=== PATIENT | male | born 1945 | race Caucasian/White ===

== ENCOUNTER 2023-12-07 07:08 | Day surgery (SDC) | payer OTHER, SELFPAY ==
[2023-12-07] VITALS (9 sets, daily range): BP systolic 113–138; BP diastolic 57–72; BMI 27.9
--- NOTE | 2023-12-07 09:08 | ITS.CL.CATH ---
Chemical Checker - Catheterization
Cardiac Catheterization
Procedure Report:
CARDIAC CATHETERIZATION REPORT
Date of Procedure: 12/07/2023
Referring: Maximiliano Rodriguez MD
Indication: Angina with abnormal nuclear stress test
HEMODYNAMIC DATA
AO: 123/70
LV: 123/16
LEFT VENTRICULOGRAPHY: Normal segmental wall motion with EF 62%
CORONARY ANGIOGRAPHY
Dominance: Right
Left Main: Eccentric 40 and 50% distal stenosis
LAD: The LAD is severely calcified throughout its course. There is a 80% proximal LAD stenosis. There is a 70% mid LAD lesion distal to the takeoff of the second diagonal branch. There is a 60% distal LAD stenosis and a 90% LAD lesion just
proximal to the LV apex. D1 is a relatively small vessel with mild luminal disease. D2 is a medium sized vessel with mild luminal disease.
Circumflex: The circumflex is severely calcified with 50% proximal stenosis. OM1 and OM 2 are small. OM 3 is large with 70% proximal to mid stenosis in the much larger branch distal to a bifurcation site. The circumflex terminates with one small
and one medium sized posterolateral branch.
RCA: The RCA is dominant and severely calcified. There is 30% proximal stenosis and 50-60% mid RCA stenosis. There is 70% ostial RPDA stenosis (large vessel) and three medium sized posterolateral branches
Closure Device: None-the procedure was performed via the right radial artery. The William's test was normal prior to the procedure.
Radiation (mGy): 523
DAP (cm2.Gy): 47.3
Fluoro time: 3.2 min
CONCLUSIONS
1: Normal left ventricular wall motion with EF 62%
2: Severe multivessel CAD as described
3. We will add metoprolol XL 25 mg daily and provide sublingual nitroglycerin with instructions on use. The patient will have his activity restricted until revascularization has been accomplished. Elective consultation for CABG will be arranged.
The graftability of the LAD is the only issue with his candidacy for CABG. If either he was felt to be a poor surgical candidate or the patient refused surgery if offered, we could stent the proximal LAD lesion and the OM 3 lesion but would not be
able to provide complete revascularization. The left main lesion is borderline and is yet another reason why CABG is preferred in this patient if he is felt to be a candidate
Copy to: Maximiliano Rodriguez MD, Michael Farias MD
Gera Teran MD, [facility], [facility]
--- NOTE | 2023-12-07 10:38 | CONSULT.CT ---
Consultation
-
Date/Time Consultation Requested: 12/07/23
Date/Time Consultation Performed: 12/07/23 10:30
Requesting Provider: Dr. Gera Teran MD.
Performing Provider: Graciela Hodge PA-C
Reason for Consultation: Surgical evaluation for left main multivessel coronary artery disease
Patient History
Physicians
Family Physician: Dr. Michael Farias MD.
Outpatient Commercial Accountant: Dr. Maximiliano Rodriguez MD.
Inpatient Commercial Accountant: [facility] Cardiology-interventionalist Dr. Gera Teran MD.
History of Present Illness
Patient is an extremely pleasant 78-year-old male with past medical history significant for diffuse arthritis, hyperlipidemia, BPH, and history of palpitations/premature atrial contractions.
Patient has been experiencing chest pressure described as angina, and irregular rhythms consisting of palpitations, and premature atrial contractions. He is being followed by Dr. Maximiliano Rodriguez of cardiology. On 11/24/23 patient underwent
pharmacologic nuclear stress test which was abnormal. Given the results of the patient's abnormal stress test Dr. Rodriguez scheduled elective outpatient cardiac catheterization.
Patient presented to the cardiac catheterization lab today on 12/07/2023. Patient was found to have left main multivessel CAD. Please see Dr. Teran's report summarized below:
LM: 40-50% distal
LAD: 80% prox, 70% mid, 60-90% distal
LCx: 50% prox
OM3: 70% prox-mid
RCA: 30% prox, 50-60% mid
RPDA: 70% ostial
TTEchocardiogram: 11/22/23 [place]
EF: normal
MV: trace-mild
AV: minimal (pg 15), no AI
TV: trivial TR
PV: normal
LVSD: 29
LVDD: 43
PAP: 29
Past Medical History
Past Medical History: Other
Diffuse arthritis
Hyperlipidemia
BPH
History of palpitations/premature atrial contractions
History of multiple spinal surgeries
History of bilateral knee replacements
History of bilateral carpal tunnel release
Abnormal stress test
Past Surgical History
Past Surgical History: Other
C5-C6 laminectomy 08/2022
L4-L5, S1 fusion/laminectomy 2018
T10-T11 fusion/laminectomy
Bilateral knee replacements
Bilateral carpal tunnel release
Tonsillectomy
Dental History
Noncontributory
Family History
Mother: at Age (97) and Cause of (Natural causes)
Father: at Age (90) and Cause of (Complications with dementia and respiratory failure)
Social History
Alcohol: Occasional (3-5 drinks per week (beer/wine))
Drug: None
Tobacco: Former Smoker ( quit 1974, smoked 1 PPD x 5 years)
Personal: (has 4 children )
Living: Alone
Employment: Retired (Previously worked as an electrical repairer)
Allergies
Allergy/AdvReac Type Severity Reaction Status Date / Time
No Known Allergies Allergy Unverified 12/07/23 07:50
Home Medications
�Medication �Instructions �Recorded �Confirmed �Type
alpha lipoic acid 600 mg tablet 600 mg PO QPM 12/07/23 12/07/23 History
aspirin 81 mg capsule 81 mg PO DAILY 12/07/23 12/07/23 History
atorvastatin 40 mg tablet 40 mg PO DAILY #90 tabs 12/07/23 Rx
diclofenac sodium 1 % topical gel 2 g topical QID 12/07/23 12/07/23 History
duloxetine 30 mg capsule,delayed 30 mg PO DAILY 12/07/23 12/07/23 History
release
ibuprofen 200 mg tablet 400 mg PO Q6HPRN PRN pain 12/07/23 12/07/23 History
latanoprost 0.005 % eye drops 1 drp BOTH EYES HS 12/07/23 12/07/23 History
(Xalatan)
lidocaine HCl 4 % topical cream 1 applic topical BID PRN pain 12/07/23 12/07/23 History
(Aspercreme (lidocaine HCl))
magnesium glycinate 100 mg (as 200 mg PO DAILY 12/07/23 12/07/23 History
glycinate) tablet
metoprolol succinate 25 mg 25 mg PO DAILY #90 tabs 12/07/23 Rx
tablet,extended release 24 hr
multivitamin 1 tab PO DAILY 12/07/23 12/07/23 History
nitroglycerin 0.4 mg sublingual 0.4 mg sublingual [id number] PRN 12/07/23 Rx
tablet chest pain #25 tabs
tamsulosin 0.4 mg capsule 0.4 mg PO DAILY 12/07/23 12/07/23 History
turmeric 400 mg capsule 2,250 mg PO DAILY 12/07/23 12/07/23 History
vitamin B complex 1 cap PO DAILY 12/07/23 12/07/23 History
Review of Systems
-
History Source: Patient
General: Denies Fever, Weight Gain, Weight Loss or Fatigue
HEENT: Denies Visual Changes, Dysphagia or Hoarseness
Respiratory: Denies SOB, THRASHER, Cough or PND
Cardiac: Reports Palpitations and Other (Chest pressure, irregular heartbeat); Denies Known Vascular Disease, Nausea, Vomiting or Edema
Abdomen/GI: Denies Abdominal Pain, Reflux, Indigestion, Nausea, Vomiting, BRBPR or Ulcers
: Denies Dysuria, Frequency, Incontinence, Urgency or Hematuria
Musculoskeletal: Reports Myalgias, Arthralgias and Joint Pain; Denies Edema
Skin: Denies Itching or Rash
Neurological: Denies CVA, TIA, Headaches, Syncope, Numbness or Seizures
Vascular: Reports No Symptoms
Physical Exam
Vital Signs
Temp 99 F 12/07/23 07:23
Temp route: Temporal 12/07/23 07:23
Pulse 60 12/07/23 10:00
Resp Rate 20 12/07/23 10:00
Blood pressure 135/66 12/07/23 09:51
Blood pressure extremity used: Right upper arm 12/07/23 07:23
Position: Lying 12/07/23 07:23
MAP (cuff-Krysten Monitor) 87 12/07/23 09:51
SaO2 93 12/07/23 10:00
Oxygen Mode of Delivery Room air 12/07/23 07:23
Can the patient verbally communicate their pain? Yes 12/07/23 09:54
Actual Weight 178 lb 0.02 oz 12/07/23 07:23
Body Mass Index (BMI) 27.9 12/07/23 07:23
Diagnostic Studies
Cardiac catheterization: 12/07/23 [facility]
LM: 40-50% distal
LAD: 80% prox, 70% mid, 60-90% distal
LCx: 50% prox
OM3: 70% prox-mid
RCA: 30% prox, 50-60% mid
RPDA: 70% ostial
TTEchocardiogram: 11/22/23 [place]
EF: normal
MV: trace-mild
AV: minimal (pg 15), no AI
TV: trivial TR
PV: normal
LVSD: 29
LVDD: 43
PAP: 29
Exam
General: Well Developed, Well Nourished and No Apparent Distress
HEENT: Normocephalic, Moist Mucous Membranes, Atraumatic, PERRLA and EOMI
Neck: Trachea Midline; Negative Carotid Bruit
Respiratory: Clear; Negative Wheezes, Crackles, Rhonchi or Accessory Muscle Use
Cardiac: S1/S2 and Regular Rhythm (/Sinus Bradycardia ); Negative Murmur, Rub or Gallop
GI: Soft, Non Tender, Non Distended and Normal Bowel Sounds
Rectal: Deferred by Provider
Skin: Warm and Dry; Negative Rash
Neuro: AO x 3, No Motor Deficits and CN X-XII Intact
Extremities: Lower Level Edema (Trace bilaterally); Negative Upper Level Edema, Upper Level Cyanosis, Lower Level Cyanosis, Upper Level Clubbing or Lower Level Clubbing
Psych: Calm
Assessment / Plan
-
Assessment:
78-year-old male with PMH of:
Diffuse arthritis
Hyperlipidemia
BPH
History of palpitations/premature atrial contractions
History of multiple spinal surgeries
History of bilateral knee replacements
History of bilateral carpal tunnel release
Abnormal stress test
Now found to have newly diagnosed:
Left main multivessel CAD
Preserved left ventricular ejection fraction
Plan:
Patient's case will be discussed with attending physician.
Patient was given an outpatient consultation with surgeon Dr. Sesar Dodge MD.
Further preadmission testing and details regarding patient's surgical intervention and timing will be decided on that visit.
Appointment card was handed to the patient in person for follow-up on 12/13/2023 at 11:00 AM
[2023-12-07] MEDS: TOPROL XL 25 MG PO (10:57)
--- NOTE | 2023-12-07 13:02 | PTCARENOTE ---
Patient's IV removal tolerated well, no s.s of infection. Patient and RN discussed discharge instructions and pending appointments. patient stated understanding and all questions answered. Radial site C/D/I, no bleeding noted. Patient's son
acquired patient.
== END 2023-12-07 13:03 | disposition home or self-care (01) ==
LOC: CATH 07:08
PROVIDERS: ATTENDING PHYSICIAN Internal Medicine Cardiovascular Disease; CONSULT PHYSICIAN Thoracic Surgery (Cardiothoracic Vascular Surgery); FAMILY PHYSICIAN Orthopaedic Surgery Orthopaedic Surgery of the Spine
DX: I25.119 Atherosclerotic heart disease of native coronary artery with unspecified angina pectoris (principal); I25.84 Coronary atherosclerosis due to calcified coronary lesion; R00.2 Palpitations; I49.1 Atrial premature depolarization; N40.0 Benign prostatic hyperplasia without lower urinary tract symptoms; E78.5 Hyperlipidemia, unspecified; M19.90 Unspecified osteoarthritis, unspecified site; Z96.653 Presence of artificial knee joint, bilateral; Z87.891 Personal history of nicotine dependence; Z79.82 Long term (current) use of aspirin; Z90.89 Acquired absence of other organs; Z79.899 Other long term (current) drug therapy
CPT/HCPCS: 93458; C1894; Q9967

== ENCOUNTER 2024-06-16 14:55 | Outpatient (RCR) | payer OTHER, SELFPAY | END 2024-06-16 23:59 | disposition home or self-care (01) | LOC: CRHB 14:55 | PROVIDERS: ATTENDING PHYSICIAN Internal Medicine Cardiovascular Disease; FAMILY PHYSICIAN Internal Medicine | DX: I25.10 Atherosclerotic heart disease of native coronary artery without angina pectoris (principal); Z95.1 Presence of aortocoronary bypass graft | CPT/HCPCS: G0422; G0423 ==

== ENCOUNTER 2024-07-14 13:36 | Outpatient (RCR) | payer OTHER, SELFPAY | END 2024-07-14 23:59 | disposition home or self-care (01) | LOC: CRHB 13:36 | PROVIDERS: ATTENDING PHYSICIAN Internal Medicine Cardiovascular Disease; FAMILY PHYSICIAN Internal Medicine | DX: Z95.1 Presence of aortocoronary bypass graft (principal) | CPT/HCPCS: G0422; G0423 ==

== ENCOUNTER 2024-08-11 13:25 | Outpatient (RCR) | payer OTHER, SELFPAY ==
[2024-08-07 15:57] LABS: HDL Cholesterol 46 mg/dl; LDL Cholesterol, Calculated 41 mg/dl; Total Cholesterol 103 mg/dl (50-199); Triglyceride 84 mg/dl (10-149); Very Low Density Lipoprotein 16 mg/dl (0-30)
== END 2024-08-11 23:59 | disposition home or self-care (01) ==
LOC: CRHB 13:25
PROVIDERS: ATTENDING PHYSICIAN Internal Medicine Cardiovascular Disease; FAMILY PHYSICIAN Internal Medicine
DX: Z95.1 Presence of aortocoronary bypass graft (principal)
CPT/HCPCS: 36415; 80061; G0422; G0423